=== PATIENT | female | born 1995 | race Caucasian/White ===

== ENCOUNTER 2016-03-16 23:33 | Outpatient (CLI) | payer BC ==
[~2016-03-16] VITALS: Ht 160 cm; Wt 76.8 kg
[~2016-03-16 23:33] MED LIST: AMOX500C3 PO; NTRS PO; PRENTAB26 PO; [UNRECOGNIZED DRUG - CODE] VA
[2016-03-17] MEDS ORDERED: FERR1TAB23 (00:29)
[2016-03-17] MEDS ORDERED: HMLNPUC SQ (00:30)
[2016-03-17 00:31] VITALS: Ht 160 cm; Wt 76.8 kg
== END 2016-03-17 01:25 | disposition home or self-care (01) ==
LOC: C.OPB 23:33 → C.LD 23:33 → C.OPB 03-17 01:25
PROVIDERS: ATTEND Obstetrics & Gynecology
DX: O47.03 False labor before 37 completed weeks of gestation, third trimester (principal); O99.333 Smoking (tobacco) complicating pregnancy, third trimester; Z3A.34 34 weeks gestation of pregnancy

== ENCOUNTER 2016-03-26 21:23 | Outpatient (CLI) | payer BC, OTHER ==
[~2016-03-26] VITALS: Ht 160 cm; Wt 77.6 kg
[~2016-03-26 21:23] MED LIST changes: -AMOX500C3 PO; +FERR1TAB23; +HMLNPUC SQ; -NTRS PO; -[UNRECOGNIZED DRUG - CODE] VA
[2016-03-26 21:52] VITALS: Ht 160 cm; Wt 77.6 kg
== END 2016-03-26 22:55 | disposition home or self-care (01) ==
LOC: C.LD 21:23 → C.OPB 21:23
PROVIDERS: ATTEND Obstetrics & Gynecology
DX: O26.893 Other specified pregnancy related conditions, third trimester (principal); R51 Headache; M79.89 Other specified soft tissue disorders; O24.414 Gestational diabetes mellitus in pregnancy, insulin controlled; Z3A.35 35 weeks gestation of pregnancy

== ENCOUNTER 2016-03-30 21:43 | Observation (INO) | payer BC, OTHER ==
[~2016-03-30] VITALS: Ht 160 cm; Wt 81.8 kg
[~2016-03-30 21:43] MED LIST changes: -FRRS300 PO
[2016-03-30] MEDS ORDERED: OXYCODONE/ACETAMINOPHEN 5-325 TAB PO ONE (22:15)
[2016-03-30 22:52] LABS: BASO % 0.2 %; BASO ABS # 0.02 K/uL (0-0.2); COMPLETE YES; HEMATOCRIT 30.8 % (37-47); IG% 0.2 %; LYMPH % 21.6 %; MEAN CELL VOLUME 86.5 fL (80-100); MEAN CORPUSCULAR HEMOGLOBIN 28.4 pg (25-34); MEAN CORPUSCULAR HGB CONC 32.8 g/dl (32-36); MEAN PLATELET VOLUME 10.1 fL (7.4-10.4); MONO % 7.5 %; NEUT % 69.5 %; PLATELET COUNT 346 K/uL (130-400); RED BLOOD COUNT 3.56 M/uL (4.2-5.4)
[2016-03-30 22:53] VITALS: Ht 160 cm; Wt 81.8 kg
[2016-03-30 23:07] LABS: URINE PROTIEN/CREAT RATIO 0.2 (0-0.2); URINE TOTAL PROTEIN 40.9 mg/dl (0-11.9)
[2016-03-30 23:16] LABS: BUN/CREATININE RATIO 16.8 (10-20); CREATININE 0.71 mg/dl (0.60-1.20); POTASSIUM 3.9 mmol/L (3.5-5.1)
[2016-03-30 23:19] LABS: ALB/GLOB RATIO 0.6 (0.9-2)
[2016-03-30] MEDS ORDERED: LACTATED RINGER'S 1000ML 1,000 ML IV PRN (23:55)
[2016-03-30] MEDS ORDERED: PROMETHAZINE HCL INJ 25 MG in SODIUM CHLORIDE 0.9% 50ML 50 ML IV STA (23:55)
[2016-03-31] MEDS ORDERED: MoRPHine SULFATE 2 MG/ML CARP IV ONE
[2016-03-31] MEDS ORDERED: IV FLUIDS COMPLETED PRN (00:15)
[2016-03-31] MEDS: LACTATED RINGER'S 1000ML 1,000 ML IV SCH ×2 (00:40→04:08)
[2016-03-31] MEDS ORDERED: NURSING VERBAL MED ORDER ONE ×3 (01:45)
[2016-03-31] MEDS ORDERED: BUTORPHANOL TARTRATE 1 MG/ML VIAL IV PRN (02:00)
[2016-03-31] MEDS ORDERED: ONDANSETRON INJ 2 MG/ML 2 ML VIAL IV ONE (02:15)
[2016-03-31] MEDS ORDERED: BUTALBITAL/ACETAMIN/CAFFEINE TAB PO PRN (04:30)
[2016-03-31 06:27] LABS: HEMATOCRIT 31.1 % (37-47); MEAN CELL VOLUME 85.2 fL (80-100); MEAN CORPUSCULAR HEMOGLOBIN 27.9 pg (25-34); MEAN CORPUSCULAR HGB CONC 32.8 g/dl (32-36); MEAN PLATELET VOLUME 10.3 fL (7.4-10.4); PLATELET COUNT 311 K/uL (130-400); RED BLOOD COUNT 3.65 M/uL (4.2-5.4); WHITE BLOOD COUNT 10.18 K/uL (4.8-10.8)
[2016-03-31 07:02] LABS: ALT/SGPT 16 U/L (12-78); AST/SGOT 12 U/L (15-37); BLOOD UREA NITROGEN 11 mg/dl (7-18); BUN/CREATININE RATIO 20.1 (10-20); CALCIUM 8.4 mg/dl (8.5-10.1); CARBON DIOXIDE 21 mmol/L (21-32); CHLORIDE 109 mmol/L (98-107); CREATININE 0.55 mg/dl (0.60-1.20); GLUCOSE 85 mg/dl (70-99); SODIUM 141 mmol/L (136-145)
[2016-03-31 07:04] LABS: ALB/GLOB RATIO 0.7 (0.9-2); ALKALINE PHOSPHATASE 114 U/L (45-117)
--- NOTE | 2016-03-31 08:52 | Discharge Instructions ---
Discharge Instructions Admission Reason for Admission: Headache, 36 Weeks Discharge Discharge Diagnosis / Problem: IUP 36 WEEKS, HEADACHE, R/O PREECLAMPSIA Discharge Goals Goal(s): Continuing OB care Activity Recommendations Activity Limitations: resume your previous activity . Instructions / Follow-Up Instructions / Follow-Up SPECIAL CARE INSTRUCTIONS: Call Doctor if: * Regular contractions every 5 minutes or greater than contractions in one hour. * Bleeding * Water breaks or is leaking * Decreased movement * Fever >100.4 degrees F * Pain not relieved by routine measures or pain medication ordered. * Call if headache worsens, nausea/vomiting, increased right upper quadrant pain, significant worsening in swelling. FOLLOW UP VISIT: Return to Labor and Delivery on for /call for appointment time . Follow-up Visit with: ___ob clinic__ When:___tuesday as scheduled. Turn in 24 hour urine tomorrow morning. keep on ice__ Current Hospital Diet Patient's current hospital diet: Discharge Diet Recommended Diet: Regular Diet Pending Studies Studies pending at discharge: yes List of pending studies: 24 hour urine Medical Emergencies . Who to Call and When: Medical Emergencies: If at any time you feel your situation is an emergency, please call 911 immediately. . Non-Emergent Contact Non-Emergency issues call your: Cargo Trimmer . . "Provider Documentation" section prepared by Dai Hearn. VTE Core Measure Inpt VTE Proph given/why not?: Treatment not indicated
== END 2016-03-31 09:05 | disposition home or self-care (01) ==
LOC: C.OPB 21:43 → C.LD 21:44 → C.OPB 23:57 → C.LD 23:57
PROVIDERS: ADMIT Obstetrics & Gynecology; ATTEND Obstetrics & Gynecology
DX: O99.89 Other specified diseases and conditions complicating pregnancy, childbirth and the puerperium (principal); R51 Headache; Z3A.36 36 weeks gestation of pregnancy

== ENCOUNTER → 2016-03-30 | Outpatient (CLI) | payer BC ==
[~2016-03-30] MED LIST changes: +FRRS300 PO
== END | disposition home or self-care (01) ==
LOC: C.LABSPEC 10:19
PROVIDERS: ATTEND Obstetrics & Gynecology
DX: O24.414 Gestational diabetes mellitus in pregnancy, insulin controlled (principal)

== ENCOUNTER 2016-04-06 08:13 | Inpatient (IN) | payer BC, OTHER ==
[~2016-04-06] VITALS: Ht 157.5 cm; Wt 85.0 kg
[~2016-04-06 08:13] MED LIST changes: -FERR1TAB23
[2016-04-06] MEDS ORDERED: LACTATED RINGER'S 1000ML 1,000 ML IV PRN (08:43)
[2016-04-06 08:49] VITALS: Ht 157.5 cm; Wt 85.0 kg
[2016-04-06 09:05] LABS: HEMATOCRIT 32.2 % (37-47); MEAN CELL VOLUME 85.6 fL (80-100); MEAN CORPUSCULAR HEMOGLOBIN 28.7 pg (25-34); MEAN CORPUSCULAR HGB CONC 33.5 g/dl (32-36); MEAN PLATELET VOLUME 10.3 fL (7.4-10.4); PLATELET COUNT 337 K/uL (130-400); RED BLOOD COUNT 3.76 M/uL (4.2-5.4); WHITE BLOOD COUNT 11.94 K/uL (4.8-10.8)
[2016-04-06 09:42] LABS: ALB/GLOB RATIO 0.6 (0.9-2); CALCIUM 8.5 mg/dl (8.5-10.1)
[2016-04-06 10:29] LABS: CREATININE 0.62 mg/dl (0.60-1.20)
[2016-04-06] MEDS: LACTATED RINGER'S 1000ML 1,000 ML IV SCH ×2 (11:06→13:20)
[2016-04-06] MEDS ORDERED: BUPIVACAINE 0.25% 30 ML VIAL ONE (11:07)
[2016-04-06] MEDS ORDERED: EpHEDrine SULFATE INJ 50 MG/ML AMP ONE (11:07)
[2016-04-06] MEDS ORDERED: FENTANYL 2MCG/ML ROPIV 1.25MG/ML 100ML BAG EPI ONE (11:08)
[2016-04-06] MEDS ORDERED: FENTANYL CITRATE INJ 50 MCG/1 ML 2 ML VIAL ONE (11:08)
[2016-04-06] MEDS ORDERED: LACTATED RINGER'S 1000ML 500 ML IV PRN (12:58)
[2016-04-06] MEDS ORDERED: NALOXONE HCL INJ 1 MG in SODIUM CHLORIDE 0.9% 1000ML 1,000 ML IV PRN (12:58)
[2016-04-06] MEDS ORDERED: NALBUPHINE HCL INJ 10 MG/ML AMP IV PRN (13:00)
[2016-04-06] MEDS ORDERED: FENTANYL 2MCG/ML ROPIV 1.25MG/ML 100ML BAG EPI PRN (13:00)
[2016-04-06] MEDS ORDERED: EpHEDrine SULFATE INJ 50 MG/ML AMP IV PRN (13:00)
[2016-04-06] MEDS ORDERED: DiphenhydrAMINE HCL 50 MG/ML VIAL IV PRN (13:00)
[2016-04-06] MEDS ORDERED: NALOXONE HCL INJ 0.4 MG/1 ML VIAL/CARP IV PRN (13:00)
[2016-04-06] MEDS ORDERED: OXYTOCIN 30 UNITS/500ML NSS IV ONE (16:39)
[2016-04-06] MEDS ORDERED: ACETAMINOPHEN/CODEINE 300/30MG TAB PO PRN (17:45)
[2016-04-06] MEDS ORDERED: OXYTOCIN 30 UNITS/500ML NSS IV PRN (17:45)
[2016-04-06] MEDS ORDERED: LANOLIN OINT EXT PRN ×2 (17:45)
--- NOTE | 2016-04-06 18:33 | Anesthesia Procedure Note ---
Anesthesia Epidural Removal Nt Date & Time Apr 06, 2016 at 18:32 Vital Signs Pain Intensity: 9.0 Notes Mental Status: alert / awake / arousable, participated in evaluation Nausea / Vomiting: adequately controlled Pain: adequately controlled Airway Patency, RR, SpO2: stable & adequate BP & HR: stable & adequate Hydration State: stable & adequate Neuraxial Anesthesia: was administered, sensory block is resolving Anesthetic Complications: no major complications apparent, pt satisfied with anesthetic care Epidural: removed without complications, with tip intact
[2016-04-06 19:40] VITALS: BP 150/78; PULSE 68; TEMP 37.7
[2016-04-06] MEDS: SUPERCREAM 0.870 % 15GM JAR EXT PRN (21:06)
[2016-04-06] MEDS: BENZOCAINE 20% AER SPR 82.5 GM CAN EXT PRN (21:06)
[2016-04-06] MEDS: IBUPROFEN 600 MG TAB PO PRN ×2 (21:06→21:09)
[2016-04-06 23:25] VITALS: BP 124/73; PULSE 81; TEMP 36.9; O2SAT 97
[2016-04-06] MEDS: ACETAMINOPHEN 325 MG TAB PO PRN (23:34)
--- NOTE | 2016-04-07 00:13 | DELIVERY SUMMARY ---
DATE OF OPERATION: 04/06/2016 PREOPERATIVE DIAGNOSES: 1. Intrauterine at 37 and 0/7 week. 2. Spontaneous rupture of membranes and early labor. POSTOPERATIVE DIAGNOSES: Same. PROCEDURES: 1. Epidural anesthesia. 2. Normal spontaneous vaginal delivery. 3. First degree perineal laceration with repair. SURGEON: Dai Hearn MD; and Shirley Kulkarni MD ANESTHESIA: Epidural. ESTIMATED BLOOD LOSS: 450 mL. DESCRIPTION OF PROCEDURE: The patient presented to labor and delivery with gross rupture of membranes. She was found to be 4 and 80%. She was allowed expectant management and progressed to receive an epidural. She then progressed to complete-complete and +3 station. She pushed for 23 minutes to deliver a viable female infant in REYNA presentation. There was no nuchal cord. The anterior shoulder was delivered without difficulty. The nose and mouth were bulb suctioned and the rest of the baby was then delivered. The nose and mouth were again bulb suctioned. The cord was clamped and cut as the cord was short, and the was placed on the maternal abdomen for drying and attention. Cord blood was obtained. I was then called away urgently to another delivery. Dr. Shirley Kulkarni was able to come into the room. She delivered the placenta spontaneously intact with a 3-vessel cord. Hemostasis was obtained with dilute Pitocin and fundal massage. A first degree perineal laceration was repaired by her with 3-0 chromic in a standard fashion. Cervix, sulci and rectum were examined and found to be intact. Apgars pending. Weight pending. Mother and baby doing well at the end of the delivery. I attest to the content of the Intraoperative Record and any orders documented therein. Any exceptio ns are noted below.
[2016-04-07 03:30] VITALS: BP 134/64; PULSE 73; TEMP 36.4; O2SAT 94
[2016-04-07] MEDS: IBUPROFEN 600 MG TAB PO PRN ×3 (04:13→19:31)
--- NOTE | 2016-04-07 07:04 | Progress Note ---
Subjective Apr 07, 2016. Subjective conversation w/ patient, physical exam Ambulation: ambulating normally Voiding: no voiding problems Passing Gas: Yes Diet Tolerance: Regular Diet Lochia: Moderate Feeding Type: Breast Feeding Review of Systems Constitutional: No chills, No fever Respiratory: No cough, No shortness of breath Cardiac: No chest pain Abdomen: No nausea, No vomiting Objective Vital Signs Date Time Temp Pulse Resp B/P Pulse Ox O2 Delivery O2 Flow Rate FiO2 04/07/16 03:30 36.4 73 16 134/64 94 Room Air 04/06/16 23:25 97 Room Air 04/06/16 23:25 36.9 81 18 124/73 97 Room Air 04/06/16 19:40 Room Air 04/06/16 19:40 37.7 68 20 150/78 Room Air Physical Exam General Appearance: WELL-APPEARING Respiratory/Chest: lungs clear, no respiratory distress Cardiovascular: regular rate, rhythm, no murmur Abdomen: normal bowel sounds, non tender Fundus: Firm, Non-Tender, Relation to Umbilicus (at the umbilicus) Extremities: non-tender, no calf tenderness Laboratory Results Last 24 Hours Test 04/06/16 08:55 04/06/16 09:09 04/06/16 11:02 04/06/16 12:51 White Blood Count 11.94 K/uL Red Blood Count 3.76 M/uL Hemoglobin 10.8 g/dL Hematocrit 32.2 % Mean Corpuscular Volume 85.6 fL Mean Corpuscular Hemoglobin 28.7 pg Mean Corpuscular Hemoglobin Concent 33.5 g/dl RDW Standard Deviation 43.8 fL RDW Coefficient of Variation 14.0 % Platelet Count 337 K/uL Mean Platelet Volume 10.3 fL Sodium Level 140 mmol/L Potassium Level 4.0 mmol/L Chloride Level 108 mmol/L Carbon Dioxide Level 20 mmol/L Anion Gap 12.0 mmol/L Blood Urea Nitrogen 9 mg/dl Creatinine 0.62 mg/dl Est Creatinine Clear Calc Drug Dose 144.0 ml/min Estimated GFR () 148.3 Estimated GFR (Non- 128.0 BUN/Creatinine Ratio 15.0 Random Glucose 127 mg/dl Calcium Level 8.5 mg/dl Total Bilirubin 0.1 mg/dl Aspartate Amino Transf (AST/SGOT) 25 U/L Alanine Aminotransferase (ALT/SGPT) 25 U/L Alkaline Phosphatase 136 U/L Total Protein 6.2 gm/dl Albumin 2.4 gm/dl Globulin 3.8 gm/dl Albumin/Globulin Ratio 0.6 Bedside Glucose 136 mg/dl 89 mg/dl 89 mg/dl Test 04/06/16 15:04 04/07/16 04:44 Bedside Glucose 74 mg/dl Assessment and Plan Problem List Medical Problems: (1) History of endometriosis Status: Acute (2) Non-surgical left lower quadrant abdominal pain Status: Acute (3) Status: Acute Post- Day#: 1 Continue Routine Care: s/p Day 1 - Vital signs reviewed and within normal limits - Blood type O+, GBS -, Rubella immune - Pt doing well clinically - Encourage ambulation, monitor and control pain with motrin prn, resume regular diet, monitor lochia - Encourage breast feeding - CONTINUE ROUTINE POST CARE Resident Physician Supervision Note: I was present with Dr. Novoa during the history and exam. I discussed the case with the resident and agree with the findings and plan as documented in the note. Any exceptions or clarifications are listed here: none, routine care. Documented By: Dai Hearn
[2016-04-07 07:16] LABS: HEMATOCRIT 25.7 % (37-47)
[2016-04-07] MEDS: DOCUSATE SODIUM 100 MG CAP PO SCH ×3 (07:34→19:31)
[2016-04-07 08:15] VITALS: BP 129/77; PULSE 71; TEMP 36.7; O2SAT 98
[2016-04-07] MEDS: ACETAMINOPHEN 325 MG TAB PO PRN ×2 (11:16→17:03)
[2016-04-07 12:04] VITALS: BP 133/81; PULSE 81; TEMP 36.6; O2SAT 97
[2016-04-07 15:55] VITALS: BP 126/70; PULSE 80; TEMP 36.9
[2016-04-07] MEDS ORDERED: BISACODYL 5 MG TABEC PO SCH (20:00)
[2016-04-07] MEDS: ACETAMINOPHEN/CODEINE 300/30MG TAB PO PRN (20:37)
[2016-04-07 23:10] VITALS: BP 134/77; PULSE 77; TEMP 36.7
[2016-04-08] MEDS: ACETAMINOPHEN/CODEINE 300/30MG TAB PO PRN ×3 (00:30→10:25)
[2016-04-08] MEDS: IBUPROFEN 600 MG TAB PO PRN ×3 (00:31→10:25)
[2016-04-08 07:23] VITALS: BP 114/71; PULSE 81; TEMP 36.7; O2SAT 99
--- NOTE | 2016-04-08 07:48 | Progress Note ---
Subjective Apr 08, 2016. Subjective conversation w/ patient, physical exam Ambulation: ambulating normally Voiding: no voiding problems Passing Gas: Yes Diet Tolerance: Regular Diet Lochia: Small Feeding Type: Breast Feeding Review of Systems Constitutional: No fever Respiratory: No cough, No shortness of breath Cardiac: No chest pain, No palpitations Abdomen: No nausea, No pain, No vomiting Objective Vital Signs Date Time Temp Pulse Resp B/P Pulse Ox O2 Delivery O2 Flow Rate FiO2 04/08/16 07:23 36.7 81 18 114/71 99 Room Air 04/07/16 23:10 36.7 77 18 134/77 Room Air 04/07/16 23:10 Room Air 04/07/16 15:55 Room Air 04/07/16 15:55 36.9 80 18 126/70 Room Air 04/07/16 12:04 36.6 81 18 133/81 97 Room Air 04/07/16 08:15 Room Air 04/07/16 08:15 36.7 71 18 129/77 98 Room Air Physical Exam General Appearance: WELL-APPEARING, NO APPARENT DISTRESS Respiratory/Chest: lungs clear, normal breath sounds Cardiovascular: regular rate, rhythm, no murmur Abdomen: normal bowel sounds, non tender Fundus: Firm, Non-Tender, Relation to Umbilicus (1 cm below umbilicus) Extremities: non-tender, no calf tenderness, + pedal edema (minimal) Assessment and Plan Problem List Medical Problems: (1) History of endometriosis Status: Acute (2) Non-surgical left lower quadrant abdominal pain Status: Acute (3) Status: Acute Post- Day#: 2 Continue Routine Care: Resident Physician Supervision Note: I was present with Dr. Novoa during the history and exam. I discussed the case with the resident and agree with the findings and plan as documented in the note. Any exceptions or clarifications are listed here: [None] Documented By: Shirley Kulkarni s/p Day 2 - Vital signs reviewed and wnl - Blood type: B+, GBS-, Rubella immune - Pt doing well clinically - Encourage ambulation, monitor and control pain w/motrin prn, resume regular diet, monitor lochia - Encourage breast feeding - Pt counselled on d/c instructions - PT D/C today
--- NOTE | 2016-04-08 07:59 | Discharge Instructions ---
Discharge Instructions Admission Reason for Admission: R/O Ruptured Membranes Discharge Discharge Diagnosis / Problem: recovery after delivery Discharge Goals Goal(s): Routine recovery after delivery Medications Continue Dispensed Medications: supercream, dermaplast, tucks, lansinoh Activity Recommendations Activity Limitations: per Instructions/Follow-up section . Instructions / Follow-Up Instructions / Follow-Up ACTIVITY RECOMMENDATIONS: * Gradual return to full activity over the next 2-3 weeks. * No lifting - nothing heavier than baby over the next 2-3 weeks. * Do not engage in vigorous exercise, sexual activity or sports until cleared by your physician. * Do not drive or operate any motorized equipment until cleared by your physician. * You may shower/bathe daily. MEDICATIONS: For discomfort or pain, you may use Acetaminophen (Tylenol), Ibuprofen (Advil), or Naproxen (Aleve) following the package directions. For constipation you may use Colace following the package directions. BREAST CARE: If you are not breast feeding: * Wear a supportive bra 24 hours a day for one to two weeks. * Avoid stimulating your breasts and nipples as much as possible during the first few weeks after delivery. * When taking a shower, have the warm water hit your back, not breasts. * When your breasts feel full, apply ice packs. Usually three to four times a day helps ease the discomfort. * Take a mild pain medication (Tylenol / Motrin) when you are uncomfortable. If breast feeding: * Use breast milk to lubricate nipples. Lansinoh cream may be used for sore nipples. You do not need to remove cream prior to breast feeding. If using a different brand of cream, check the label for directions regarding removal of cream prior to nursing. * Wear a supportive bra. * If having problems with breasts or breast feeding, call a c consultant or your health care provider. EPISIOTOMY CARE: After delivery, if you have an episiotomy (stitches), the following steps will ease discomfort and aid healing. * For the first 24 hours after delivery, place ice packs next to your episiotomy to help reduce swelling. * After the first 24 hour-period, sitz baths, either portable or in the tub, are suggested. A shower with a shower arm sprayed over the episiotomy may be comforting. * Roslyn care should be done after each voiding and bowel movement. Squirt warm water from a plastic bottle over the perineum (region of the body between the anus and urinary opening) and pat dry. * Use Dermoplast to ease discomfort. Shake container. Lenorah directly over the episiotomy. Place a Tucks on a clean sanitary pad next to your episiotomy. SPECIAL CARE INSTRUCTIONS: When you are discharged from the hospital, it is important for you to follow the instructions listed below: * During the first week at home, you should be able to care for yourself and your baby. In addition, the usual light household activities are encouraged. * Limit your activities to the way you feel. Do not try to clean the house or move furniture. Be sensible. * If you actively engage in sports and have done so up until the time of your delivery, you may resume these activities as soon as you feel able. This may take up to one month or even longer. Use good judgment. * Continue to take your vitamins for at least six weeks after the of your baby. * Your diet need not be limited unless you were on a special diet before your delivery. Breast-feeding mothers need around 2500 calories per day and at least 64-80 ounces of fluid per day (8 to 10 glasses). * You should eat foods from the four major food groups. Crash diets or fad diets are to be avoided. Eating lean meats, fresh fruits and vegetables, low-fat dairy products, high fiber foods and a regular exercise program, will help you get back to your pre- weight without putting your health at risk. * Constipation is sometimes a problem after delivery. Take a mild laxative as needed. If breast feeding, Milk of Magnesia is acceptable to use. You may use a suppository or Fleets enema if no episiotomy. * A daily shower or tub bath is suggested. Be sure to thoroughly and gently dry the perineum. * A bloody vaginal discharge will usually continue until around four weeks post . A small amount of bleeding may continue for as long as six weeks. Vaginal discharge changes from the bright red bleeding after delivery to pink then brownish and finally yellowish-pink before becoming white and disappearing. * Bleeding may increase with activity. Your first period may come in 4-8 weeks. If you are breast feeding, your period may be delayed even longer. * Tichigan (sex) can begin whenever both you and your partner feel comfortable and do not have any form of genital infection. It is recommended that you wait at least six weeks for internal and external healing to occur. If you have questions, please talk to your health care practitioner. A condom should be used to prevent infection and . * Foreplay, gentle intercourse and lubrication is very important the first several times to prevent pain. A water-based lubricant such as K-Y jelly or Astroglide may be used. * If you have RH negative blood and your baby is RH positive, you will receive RHOGAM by injection prior to discharge. The nurse will give you a card to keep with you that has the date and place that you received RHOGAM after delivery. * During your care, you had a Rubella screen done to check for the presence of rubella antibodies in your blood. If your test was negative, you will receive a Rubella vaccine prior to discharge. This vaccine may cause a fever, soreness at the injection site and flu-like symptoms. If these symptoms persist, notify your health care practitioner. is not advised for one month after a Rubella vaccine. * Verbalizes understanding of car seat law as reviewed with patient nursing. * Car Seat hand-out given and reviewed with patient by nursing. * Shaken baby information reviewed with patient by nursing. Call you doctor if: * Heavy bleeding (saturating several pads an hour) or passing clots the size of your fist. * A fever >101 degrees F (38.3 degrees C) on two occasions four hours apart and /or chills. * Unusual pain in the pelvic or vaginal areas. * "Baby Blues" lasting longer than two weeks. If you have any questions or concerns, call your health care practitioner at . FOLLOW UP VISIT: * Please call the office at to schedule a 6 week examination. It is important you keep this appointment. It is important for you to make arrangements for either yearly or twice yearly check-ups thereafter. Current Hospital Diet Patient's current hospital diet: Regular OB Diet Discharge Diet Recommended Diet: Regular OB Diet Pending Studies Studies pending at discharge: no Medical Emergencies . Who to Call and When: Medical Emergencies: If at any time you feel your situation is an emergency, please call 911 immediately. . Non-Emergent Contact Non-Emergency issues call your: Field Liability Generalist . . "Provider Documentation" section prepared by Shirley Kulkarni. VTE Core Measure Inpt VTE Proph given/why not?: Treatment not indicated
[2016-04-08] MEDS ORDERED: FRRS300 PO (08:01)
[2016-04-08] MEDS: BENZOCAINE 20% AER SPR 82.5 GM CAN EXT PRN (08:21)
[2016-04-08] MEDS: DOCUSATE SODIUM 100 MG CAP PO SCH (08:21)
[2016-04-08] MEDS: SUPERCREAM 0.870 % 15GM JAR EXT PRN (08:22)
[2016-04-08 08:54] VITALS: O2SAT 99
[2016-04-08] MEDS ORDERED: FERROUS SULFATE 325 MG TAB PO SCH (09:30)
--- NOTE | 2016-04-10 12:27 | EDITING REQUIRED CODING QUERY ---
CODING QUERY To promote full compliance with coding requirements relating to patient care, provider participation is requested in all cases of head start assistant teacher uncertainty. Please assist us with the question(s) below: Coding Question(s): Dr. Hearn, Documentation states that the patient had a headache on admission and that the was complicated by elevated blood pressures. Please further clarify this information by providing a diagnosis below: ( ) induced hypertension ( ) Pre-existing hypertension ( x ) Elevated blood pressure without diagnosis of hypertension ( ) Preeclampsia ( ) Other, please explain Physician's Response(s): Thank you for your time, MINOO Tatum, RUBBISH COLLECTION SUPERVISOR
== END 2016-04-08 13:10 | disposition home or self-care (01) | DRG 774 ==
LOC: C.OPB 08:13 → C.LD 08:13 → C.OPB 08:45 → C.LD 08:45 → C.OBG 19:42 → EDSTATUS 04-27 08:11
PROVIDERS: ADMIT Obstetrics & Gynecology; ATTEND Obstetrics & Gynecology
PROC: 10E0XZZ Delivery of Products of Conception, External Approach (ICD-10-PCS; principal; 2016-04-06)
PROC: 0HQ9XZZ Repair Perineum Skin, External Approach (ICD-10-PCS; 2016-04-06)
DX: O24.424 Gestational diabetes mellitus in childbirth, insulin controlled (principal); O99.42 Diseases of the circulatory system complicating childbirth; R03.0 Elevated blood-pressure reading, without diagnosis of hypertension; O70.0 First degree perineal laceration during delivery; O99.330 Smoking (tobacco) complicating pregnancy, unspecified trimester; F17.210 Nicotine dependence, cigarettes, uncomplicated; Z37.0 Single live birth; Z3A.37 37 weeks gestation of pregnancy; Z79.4 Long term (current) use of insulin